=== PATIENT | male | born 1955 | race African-American/Black ===

== ENCOUNTER 2018-02-17 12:49 | Inpatient (IN) | payer MEDICAID ==
[~2018-02-17] VITALS: Ht 167.6 cm; Wt 72.1 kg
[2018-02-17] MEDS ORDERED: KETOROLAC 30MG/ML VIAL IV STA (14:10)
[2018-02-17] MEDS ORDERED: MORPHINE SULFATE 4 MG/ML CPJ (NOT FOR IM USE) IV STA (14:10)
[2018-02-17 14:45] LABS: BASOPHILS % 0.9 % (0.0-2.0); EOSINOPHILS % 1.7 % (0.0-5.0); HEMOGLOBIN. 16.9 g/dL (14.0-18.0); LYMPHOCYTES % 15.9 % (20.0-50.0); MEAN CORPUSCULAR HEMOGLOBIN 34.1 pg (28.0-32.0); MEAN CORPUSCULAR VOLUME 101.3 fL (80.0-94.0); MEAN PLATELET VOLUME 8.2 fl (7.4-10.4); MONOCYTES % 11.1 % (2.0-8.0); NEUTROPHILS % 70.4 % (40.0-76.0); PLATELET 180 x1000/uL (130-400); RED BLOOD CELL COUNT 4.94 mill/uL (4.7-6.1); RED CELL DISTRIBUTION WIDTH 13.5 % (11.6-14.6)
[2018-02-17 14:52] LABS: CHLORIDE 105 mEq/L (98-107)
[2018-02-17] MEDS ORDERED: LABETALOL HCL 20MG/4ML CARPUJECT IV ONE (16:30)
[2018-02-17] MEDS ORDERED: LABETALOL HCL 20MG/4ML CARPUJECT IV SCH (17:00)
[2018-02-17] MEDS ORDERED: HYDRALAZINE 20MG/ML VIAL IV ONE (17:15)
[2018-02-17] MEDS ORDERED: ONDANSETRON HCL 4MG/2ML INJ IV PRN (18:15)
[2018-02-17] MEDS ORDERED: DOCUSATE SODIUM 100MG CAPSULE PO PRN (18:15)
[2018-02-17] MEDS ORDERED: ENOXAPARIN 40MG/0.4ML SYR SUBCUT SCH (18:15)
[2018-02-17] MEDS ORDERED: HYDROMORPHONE HCL/PF 2MG/ML CPJ IV PRN ×2 (18:15→20:45)
[2018-02-17] MEDS ORDERED: DIPHENHYDRAMINE 50MG/ML VIAL IV PRN (18:15)
[2018-02-17] MEDS ORDERED: MAGNESIUM/ALUMINUM HYDROXIDE/SIMETHICONE 30ML UDC PO PRN (18:15)
[2018-02-17] MEDS ORDERED: GUAIFENESIN 200MG/10ML SUGAR FREE UDC PO PRN (18:15)
[2018-02-17] MEDS ORDERED: ACETAMINOPHEN 325MG TABLET PO PRN (18:15)
[2018-02-17] MEDS ORDERED: IPRATROPIUM/ALBUTEROL 0.5-3(2.5)MG/3ML NEB INH PRN (18:15)
[2018-02-17] MEDS ORDERED: LORAZEPAM 2MG/ML CPJ IV PRN (18:15)
[2018-02-18] VITALS (8 sets, daily range): BP systolic 145–179; BP diastolic 86–110
[2018-02-18] MEDS: SODIUM CHLORIDE 0.9% INJ 3ML FLUSH IVF SCH ×4 (00:30→21:38)
[2018-02-18] MEDS ORDERED: HYDROMORPHONE HCL/PF 2MG/ML CPJ IV PRN (03:00)
[2018-02-18] MEDS: HYDRALAZINE 20MG/ML VIAL IV PRN (03:26)
[2018-02-18] MEDS: HYDROCODONE/APAP 7.5/325MG 1 TAB TABLET PO PRN ×3 (03:49→14:42)
[2018-02-18] MEDS: ASPIRIN 81MG EC TABLET PO SCH (08:47)
[2018-02-18] MEDS: CLONIDINE 0.1MG TABLET PO PRN (08:47)
[2018-02-18] MEDS: ENOXAPARIN 40MG/0.4ML SYR SUBCUT SCH ×2 (08:48→08:52)
[2018-02-18 11:13] LABS: BASOPHILS % 0.7 % (0.0-2.0); EOSINOPHILS % 3.2 % (0.0-5.0); HEMATOCRIT. 50.5 % (42.0-52.0); HEMOGLOBIN. 16.9 g/dL (14.0-18.0); LYMPHOCYTES % 17.1 % (20.0-50.0); MEAN CORPUSCULAR HEMOGLOBIN 33.7 pg (28.0-32.0); MEAN CORPUSCULAR VOLUME 100.9 fL (80.0-94.0); MEAN PLATELET VOLUME 8.7 fl (7.4-10.4); MONOCYTES % 12.6 % (2.0-8.0); NEUTROPHILS % 66.4 % (40.0-76.0); PLATELET 192 x1000/uL (130-400); RED CELL DISTRIBUTION WIDTH 13.7 % (11.6-14.6)
[2018-02-18 12:03] LABS: CHLORIDE 105 mEq/L (98-107)
[2018-02-18 12:12] LABS: LDL CHOLESTEROL 31 mg/dL (5-100)
[2018-02-18 12:13] LABS: CREATINE KINASE 256 IU/L (39-308)
[2018-02-18 12:14] LABS: HDL CHOLESTEROL 91 mg/dL (40-59); T4 FREE 0.92 ng/dL (0.76-1.46)
[2018-02-18 12:20] LABS: CREATINE KINASE MB FRACTION 1.9 ng/mL (0.5-3.6)
[2018-02-18 22:11] LABS: T4 FREE 0.97 ng/dL (0.76-1.46)
[2018-02-18 23:05] LABS: CREATINE KINASE 215 IU/L (39-308)
[2018-02-18 23:06] LABS: CREATINE KINASE MB FRACTION 1.4 ng/mL (0.5-3.6)
[2018-02-19] VITALS: BP 148/64
[2018-02-19 04:00] VITALS: BP 174/112
[2018-02-19] MEDS: SODIUM CHLORIDE 0.9% INJ 3ML FLUSH IVF SCH (05:04)
[2018-02-19] MEDS: HYDRALAZINE 20MG/ML VIAL IV PRN (05:13)
[2018-02-19 07:09] VITALS: BP 157/95
[2018-02-19 08:13] VITALS: BP 169/99
[2018-02-19] MEDS: HYDROCODONE/APAP 7.5/325MG 1 TAB TABLET PO PRN (08:16)
[2018-02-19] MEDS: ASPIRIN 81MG EC TABLET PO SCH (08:16)
[2018-02-19] MEDS: CLONIDINE 0.1MG TABLET PO PRN (08:16)
[2018-02-19] MEDS: ENOXAPARIN 40MG/0.4ML SYR SUBCUT SCH (08:17)
[2018-02-19 09:22] LABS: BASOPHILS % 0.7 % (0.0-2.0); EOSINOPHILS % 1.9 % (0.0-5.0); HEMOGLOBIN. 16.9 g/dL (14.0-18.0); LYMPHOCYTES % 10.2 % (20.0-50.0); MEAN CORPUSCULAR HEMOGLOBIN 33.9 pg (28.0-32.0); MEAN CORPUSCULAR VOLUME 100.4 fL (80.0-94.0); MONOCYTES % 12.6 % (2.0-8.0); NEUTROPHILS % 74.6 % (40.0-76.0); RED BLOOD CELL COUNT 4.98 mill/uL (4.7-6.1); RED CELL DISTRIBUTION WIDTH 13.7 % (11.6-14.6)
[2018-02-19 09:47] VITALS: BP 157/95
[2018-02-19 10:25] LABS: PLATELET 192 x1000/uL (130-400)
== END 2018-02-19 11:10 | disposition home or self-care (01) | DRG 199 ==
LOC: ER 12:49 → 8WST 18:24 → ENRESERV 02-18 01:04
PROVIDERS: ADMIT Internal Medicine; ATTEND Internal Medicine
DX: I16.1 Hypertensive emergency (principal); E78.5 Hyperlipidemia, unspecified; F10.10 Alcohol abuse, uncomplicated; R07.89 Other chest pain; I10 Essential (primary) hypertension; F17.200 Nicotine dependence, unspecified, uncomplicated; V18.4XXA Pedal cycle driver injured in noncollision transport accident in traffic accident, initial encounter; Z91.19 Patient's noncompliance with other medical treatment and regimen; Y93.89 Activity, other specified; Y99.8 Other external cause status; Y92.89 Other specified places as the place of occurrence of the external cause; Z71.6 Tobacco abuse counseling
CPT/HCPCS: 36415; 71250; 80061; 82550; 82553; 83036; 83880; 84439; 84443; 84484; 85379; 93005; 93970; 96374; 96375; 99291; J0360; J1650; J1885; J2270; J3490

== ENCOUNTER 2021-07-05 15:14 | Emergency (ER) | payer MEDICAID ==
[~2021-07-05] VITALS: Ht 167.6 cm; Wt 75.0 kg
[2021-07-05] MEDS ORDERED: HYDROCODONE/ACETAMINOPHEN 5/325MG TABLET PO STA (17:42)
[2021-07-05] MEDS ORDERED: CLONIDINE 0.1MG TABLET PO SCH (17:45)
[2021-07-05] MEDS ORDERED: NAPR-681 MT (17:53)
[2021-07-05] MEDS ORDERED: AMLO5TAB88 MT (17:53)
[2021-07-05] MEDS ORDERED: CYCL5TAB MT (17:53)
[2021-07-05] MEDS ORDERED: ACET-2708 MT (17:53)
[2021-07-05 18:59] VITALS: BP 198/108
== END 2021-07-05 19:01 | disposition home or self-care (01) ==
LOC: ER 15:14
DX: M25.551 Pain in right hip (principal); I10 Essential (primary) hypertension; Z79.899 Other long term (current) drug therapy
CPT/HCPCS: 73502; 99283

== ENCOUNTER 2022-08-09 16:35 | Emergency (ER) | payer MEDICAID, OTHER ==
[~2022-08-09] VITALS: Ht 167.6 cm; Wt 65.9 kg
[~2022-08-09 16:35] MED LIST: ACET-2708 MT; AMLO5TAB88 MT; CYCL5TAB MT; NAPR-681 MT
[2022-08-09 17:00] VITALS: O2SAT 91
[2022-08-09 17:38] LABS: BASOPHILS % 1.1 % (0.0-2.0); HEMATOCRIT. 48.7 % (42.0-52.0); LYMPHOCYTES % 15.8 % (20.0-50.0); MEAN CORPUSCULAR VOLUME 103.4 fL (80.0-94.0); MEAN PLATELET VOLUME 7.6 fl (7.4-10.4); MONOCYTES % 11.9 % (2.0-8.0); NEUTROPHILS % 68.2 % (40.0-76.0); PLATELET 300 x1000/uL (130-400); RED BLOOD CELL COUNT 4.71 mill/uL (4.7-6.1); RED CELL DISTRIBUTION WIDTH 14.3 % (11.6-14.6)
[2022-08-09 17:45] LABS: CHLORIDE 104 mEq/L (98-107)
[2022-08-09 17:52] VITALS: BP 184/103; PULSE 94; RESP 18; TEMP 97.9
[2022-08-09] MEDS ORDERED: TAMS-11 MT (19:25)
[2022-08-09] MEDS ORDERED: LEVO250T74 MT (19:25)
[2022-08-09] MEDS ORDERED: AMLO5TAB88 MT (19:25)
[2022-08-09] MEDS ORDERED: CLONIDINE 0.2MG TABLET PO ONE (19:30)
[2022-08-09 19:39] LABS: CLARITY URINE CLEAR (CLEAR); COLOR URINE DARK YELLOW (YELLOW); KETONES URINE TRACE (NEGATIVE); LEUKOCYTE ESTERASE URINE NEGATIVE (NEGATIVE); NITRITE URINE NEGATIVE (NEGATIVE); OCCULT BLOOD URINE 3+ (NEGATIVE); PH URINE 5.5 (4.5-8.0); PROTEIN URINE 2+ (NEGATIVE); SPECIFIC GRAVITY URINE 1.022 (1.005-1.030)
[2022-08-09] MEDS ORDERED: CLONIDINE 0.1MG TABLET PO NR (19:45)
== END 2022-08-09 20:45 | disposition home or self-care (01) ==
LOC: ER 16:35
DX: N34.2 Other urethritis (principal); R06.02 Shortness of breath; I10 Essential (primary) hypertension
CPT/HCPCS: 36415; 71045; 80053; 81003; 84484; 85025; 93005; 99285; A4315

== ENCOUNTER 2022-10-10 13:57 | Emergency (ER) | payer OTHER ==
[~2022-10-10] VITALS: Ht 177.8 cm; Wt 77.0 kg
[~2022-10-10 13:57] MED LIST changes: +LEVO250T74 MT; +TAMS-11 MT
[2022-10-10] MEDS ORDERED: ALBUTEROL (0.083%) 2.5MG/3ML NEB HHN STA (14:29)
[2022-10-10 14:49] LABS: EOSINOPHILS % 3.9 % (0.0-5.0); HEMATOCRIT. 51.4 % (42.0-52.0); HEMOGLOBIN. 16.9 g/dL (14.0-18.0); LYMPHOCYTES % 14.7 % (20.0-50.0); MEAN CORPUSCULAR HEMOGLOBIN 30.7 pg (28.0-32.0); MEAN CORPUSCULAR HGB CONC 32.8 g/dL (31.0-37.0); MEAN CORPUSCULAR VOLUME 93.5 fL (80.0-94.0); MEAN PLATELET VOLUME 7.8 fl (7.4-10.4); MONOCYTES % 13.2 % (2.0-8.0); NEUTROPHILS % 67.2 % (40.0-76.0); PLATELET 259 x1000/uL (130-400)
[2022-10-10 15:02] LABS: CHLORIDE 102 mEq/L (98-107); INDEX HEMOLYSI 1 (1-3); INDEX ICTERIC 1 (1-4); INDEX LIPEMIC 1 (1-3); POTASSIUM 4.5 mEq/L (3.5-5.1); SODIUM 138 mEq/L (136-145)
[2022-10-10 15:14] LABS: ALANINE AMINOTRANSFERASE 17 IU/L (13-61); ASPARTATE AMINOTRANSFERASE 24 IU/L (15-37); BILIRUBIN TOTAL 0.5 mg/dL (0.1-1.0); CALCIUM 9.4 mg/dL (8.5-10.1); CARBON DIOXIDE 28 mEq/L (21-32); CREATININE 1.1 mg/dL (0.6-1.3); GLUCOSE 108 mg/dL (70-105); NT PRO B-TYPE NATRIURETIC PEP 190 pg/mL (5-125); PROTEIN TOTAL 7.3 g/dL (6.0-8.3); TROPONIN I HIGH SENSITIVITY 9 ng/L (<78); UREA NITROGEN BLOOD 14 mg/dL (7-21)
[2022-10-10] MEDS ORDERED: CEFTRIAXONE 1GM PREMIX 50 ML IV ONE (15:15)
[2022-10-10] MEDS ORDERED: AZITHROMYCIN 500MG/250ML 250 ML IV ONE (15:15)
[2022-10-10] MEDS ORDERED: ALBUTEROL (0.083%) 2.5MG/3ML NEB ONE (19:04)
[2022-10-10 19:17] VITALS: PULSE 88; RESP 28; O2SAT 90
[2022-10-10 19:37] VITALS: BP 143/97; PULSE 100; RESP 31; TEMP 98.3
== END 2022-10-10 20:00 | disposition short-term general hospital (02) ==
LOC: ER 13:57
DX: I11.0 Hypertensive heart disease with heart failure (principal); I50.9 Heart failure, unspecified; J44.9 Chronic obstructive pulmonary disease, unspecified; Z79.899 Other long term (current) drug therapy; Z20.822 Contact with and (suspected) exposure to COVID-19
CPT/HCPCS: 80053; 83880; 85025; 85379; 84484; 36415; 71045; 71275; 94640; 93005; 96368; 96365; 96366; 99285; 87426; J0456; J0696; Z7610 ×3; C9803

== ENCOUNTER 2022-11-06 23:27 | Inpatient (IN) | payer OTHER ==
[~2022-11-06] VITALS: Ht 165.1 cm; Wt 62.3 kg
[2022-11-06] MEDS ORDERED: ALBUTEROL (0.083%) 2.5MG/3ML NEB HHN STA (23:38)
[2022-11-06] MEDS ORDERED: IPRATROPIUM BROMIDE (0.02%) 0.5MG/2.5ML NEB HHN STA (23:38)
[2022-11-06] MEDS ORDERED: SODIUM CHLORIDE 0.9% 250 ML IV ONE (23:45)
[2022-11-06] MEDS ORDERED: SODIUM CHLORIDE 0.9% 1,000 ML IV ONE (23:45)
[2022-11-07] VITALS (8 sets, daily range): BP systolic 112–156; BP diastolic 61–100; PULSE 22–124; RESP 20–24; TEMP 96.9–98.2; O2SAT 93–99
[2022-11-07 00:36] LABS: HEMATOCRIT. 44.6 % (42.0-52.0); HEMOGLOBIN. 14.5 g/dL (14.0-18.0); MEAN CORPUSCULAR HEMOGLOBIN 29.6 pg (28.0-32.0); MEAN CORPUSCULAR HGB CONC 32.5 g/dL (31.0-37.0); MEAN PLATELET VOLUME 7.6 fl (7.4-10.4); PLATELET 184 x1000/uL (130-400); RED BLOOD CELL COUNT 4.89 mill/uL (4.7-6.1); RED CELL DISTRIBUTION WIDTH 15.3 % (11.6-14.6); WHITE BLOOD COUNT 9.8 x1000/uL (4.5-11.0)
[2022-11-07 00:40] LABS: CHLORIDE 98 mEq/L (98-107); INDEX HEMOLYSI 1 (1-3); INDEX ICTERIC 1 (1-4); INDEX LIPEMIC 1 (1-3); POTASSIUM 4.7 mEq/L (3.5-5.1); SODIUM 136 mEq/L (136-145)
[2022-11-07 00:44] LABS: DIFFERENTIAL COMMENT 1
[2022-11-07 00:50] LABS: ALANINE AMINOTRANSFERASE 19 IU/L (13-61); ASPARTATE AMINOTRANSFERASE 22 IU/L (15-37); BILIRUBIN TOTAL 0.7 mg/dL (0.1-1.0); CALCIUM 9.5 mg/dL (8.5-10.1); CARBON DIOXIDE 32 mEq/L (21-32); CREATININE 1.1 mg/dL (0.6-1.3); ETHANOL BLOOD < 10 mg/dL (<10); GLUCOSE 103 mg/dL (70-105); NT PRO B-TYPE NATRIURETIC PEP 54 pg/mL (5-125); PROTEIN TOTAL 6.9 g/dL (6.0-8.3); TROPONIN I HIGH SENSITIVITY 12 ng/L (<78); UREA NITROGEN BLOOD 25 mg/dL (7-21)
[2022-11-07 01:04] LABS: CLARITY URINE CLEAR (CLEAR); COLOR URINE YELLOW (YELLOW); GLUCOSE URINE NEGATIVE (NEGATIVE); KETONES URINE 1+ (NEGATIVE); LEUKOCYTE ESTERASE URINE NEGATIVE (NEGATIVE); NITRITE URINE NEGATIVE (NEGATIVE); OCCULT BLOOD URINE NEGATIVE (NEGATIVE); PH URINE 6.5 (4.5-8.0); PROTEIN URINE TRACE (NEGATIVE); SPECIFIC GRAVITY URINE 1.016 (1.005-1.030)
[2022-11-07 01:08] LABS: BACTERIA URINE NONE SEEN; RBC URINE 0-2 /hpf (0-2); SQUAMOUS EPITHELIAL CELL URINE NONE SEEN /lpf (RARE/1+); WBC URINE 0-2 /hpf (0-2); YEAST URINE NONE SEEN
[2022-11-07 01:18] LABS: PLATELET ESTIMATE NORMAL
[2022-11-07 01:27] LABS: *AMPHETAMINES SCREEN URINE NEGATIVE (NEGATIVE); *BARBITURATES SCREEN URINE NEGATIVE (NEGATIVE); *BENZODIAZEPINES SCREEN URINE NEGATIVE (NEGATIVE); *COCAINE SCREEN URINE NEGATIVE (NEGATIVE); CANNABINOID URINE SCREEN NEGATIVE (NEGATIVE); ECSTASY MDMA SCREEN URINE NEGATIVE (NEGATIVE); OPIATES URINE SCREEN PRESUMTIVE POSITIVE (NEGATIVE); PHENCYCLIDINE URINE SCREEN NEGATIVE (NEGATIVE)
[2022-11-07] MEDS ORDERED: AZITHROMYCIN 500MG/250ML 250 ML IV NR (01:30)
[2022-11-07] MEDS ORDERED: CEFTRIAXONE 1GM PREMIX 50 ML IV NR (01:30)
[2022-11-07] MEDS ORDERED: SODIUM CHLORIDE 0.9% 1,000 ML IV NR (01:30)
[2022-11-07 01:31] LABS: PROTHROMBIN TIME 10.7 sec (9.6-11.0)
[2022-11-07] MEDS ORDERED: METHYLPREDNISOLONE SOD SUCC 40MG VIAL IV SCH (11:00)
[2022-11-07] MEDS ORDERED: IPRATROPIUM BROMIDE (0.02%) 0.5MG/2.5ML NEB HHN PRN (11:00)
[2022-11-07 11:11] LABS: BG BASE EXCESS 5.5 mmol/L (-2.0-2.0); BG CARBOXYHEMOGLOBIN 0.7 % (0.5-1.5); BG HCO3 ACT 32.2 mmol/L (22.0-26.0); BG METHEMOGLOBIN 0.1 % (0.0-1.5); BG OXYGEN SATURATION 91.9 % (92.0-98.5); BG OXYHEMOGLOBIN 91.2 % (94.0-97.0); BG PCO2 54.9 mmHg (35.0-45.0); BG PH 7.386 (7.350-7.450); BG PO2 65.1 mmHg (75.0-100.0); BG SAMPLE SITE RIGHT BRACHIAL; BG TOTAL HEMOGLOBIN 14.8 g/dL (12.0-18.0); BG VENT MODE NASAL CANNULA
[2022-11-07] MEDS: BUDESONIDE 0.5MG/2ML NEB HHN SCH ×2 (13:28→20:55)
[2022-11-07] MEDS: IPRATROPIUM BROMIDE (0.02%) 0.5MG/2.5ML NEB HHN SCH ×3 (13:28→20:55)
[2022-11-07] MEDS: FUROSEMIDE 40MG/4ML VIAL IVP SCH (19:54)
[2022-11-07] MEDS: ENOXAPARIN 40MG/0.4ML SYR SUBCUT SCH (19:55)
[2022-11-07] MEDS: METHYLPREDNISOLONE SOD SUCC 40MG/ML (ACT-O-VIAL) IV SCH (22:44)
[2022-11-08] VITALS (11 sets, daily range): BP systolic 147–159; BP diastolic 95–109; PULSE 88–115; RESP 18–22; TEMP 97.3–98
[2022-11-08] MEDS: IPRATROPIUM BROMIDE (0.02%) 0.5MG/2.5ML NEB HHN SCH ×5 (00:50→17:21)
[2022-11-08] MEDS: METHYLPREDNISOLONE SOD SUCC 40MG/ML (ACT-O-VIAL) IV SCH ×3 (06:29→21:50)
[2022-11-08 08:31] LABS: BG BASE EXCESS 5.9 mmol/L (-2.0-2.0); BG CARBOXYHEMOGLOBIN 1.1 % (0.5-1.5); BG DEOXYHEMOGLOBIN 9.5 % (0.0-5.0); BG FRACTION INSPIRED OXYGEN 44; BG HCO3 ACT 32.5 mmol/L (22.0-26.0); BG METHEMOGLOBIN 0.3 % (0.0-1.5); BG OXYGEN SATURATION 90.4 % (92.0-98.5); BG OXYHEMOGLOBIN 89.1 % (94.0-97.0); BG PCO2 54.5 mmHg (35.0-45.0); BG PH 7.394 (7.350-7.450); BG PO2 59.2 mmHg (75.0-100.0); BG SAMPLE SITE RIGHT RADIAL; BG TOTAL HEMOGLOBIN 15.3 g/dL (12.0-18.0); BG VENT MODE NASAL CANNULA
[2022-11-08] MEDS: FUROSEMIDE 40MG/4ML VIAL IVP SCH ×2 (08:45→11:33)
[2022-11-08] MEDS: BUDESONIDE 0.5MG/2ML NEB HHN SCH (09:12)
[2022-11-08] MEDS: ENOXAPARIN 40MG/0.4ML SYR SUBCUT SCH (18:17)
[2022-11-09] VITALS (11 sets, daily range): BP systolic 125–158; BP diastolic 72–104; PULSE 88–122; RESP 18–23; TEMP 96.8–98.2; O2SAT 88–97
[2022-11-09] MEDS: IPRATROPIUM BROMIDE (0.02%) 0.5MG/2.5ML NEB HHN SCH ×5 (03:18→23:33)
[2022-11-09] MEDS: METHYLPREDNISOLONE SOD SUCC 40MG/ML (ACT-O-VIAL) IV SCH ×3 (05:52→21:01)
[2022-11-09] MEDS: FUROSEMIDE 40MG/4ML VIAL IVP SCH ×2 (09:42→18:50)
[2022-11-09] MEDS ORDERED: IPRATROPIUM BROMIDE (0.02%) 0.5MG/2.5ML NEB HHN PRN (12:30)
[2022-11-09] MEDS: ENOXAPARIN 40MG/0.4ML SYR SUBCUT SCH (13:20)
[2022-11-09] MEDS: BUDESONIDE 0.5MG/2ML NEB HHN SCH (23:31)
[2022-11-10] VITALS (9 sets, daily range): BP systolic 136–153; BP diastolic 72–94; PULSE 86–119; RESP 18–20; TEMP 96.6–98.8; O2SAT 90–97
[2022-11-10] MEDS: IPRATROPIUM BROMIDE (0.02%) 0.5MG/2.5ML NEB HHN SCH ×4 (03:38→16:08)
[2022-11-10] MEDS: METHYLPREDNISOLONE SOD SUCC 40MG/ML (ACT-O-VIAL) IV SCH ×2 (05:56→14:59)
[2022-11-10] MEDS: FUROSEMIDE 40MG/4ML VIAL IVP SCH (05:56)
[2022-11-10] MEDS: BUDESONIDE 0.5MG/2ML NEB HHN SCH (07:52)
[2022-11-10] MEDS: ENOXAPARIN 40MG/0.4ML SYR SUBCUT SCH (09:02)
== END 2022-11-10 16:22 | disposition short-term general hospital (02) | DRG 140 ==
LOC: ER 23:27 → MICUSO 11-07 02:19 → EDBEDREQ 11-07 02:44 → EDBEDREQTM 11-07 02:44 → 8WST 11-07 08:58
PROVIDERS: ADMIT Internal Medicine; ATTEND Internal Medicine
PROC: 5A09357 Assistance with Respiratory Ventilation, Less than 24 Consecutive Hours, Continuous Positive Airway Pressure (ICD-10-PCS; principal; 2022-11-08)
DX: J44.1 Chronic obstructive pulmonary disease with (acute) exacerbation (principal); J96.01 Acute respiratory failure with hypoxia; J96.02 Acute respiratory failure with hypercapnia; I11.0 Hypertensive heart disease with heart failure; J18.9 Pneumonia, unspecified organism; E87.29 Other acidosis; I50.9 Heart failure, unspecified; J44.0 Chronic obstructive pulmonary disease with (acute) lower respiratory infection; F19.10 Other psychoactive substance abuse, uncomplicated; Z20.822 Contact with and (suspected) exposure to COVID-19; F17.210 Nicotine dependence, cigarettes, uncomplicated; Z87.01 Personal history of pneumonia (recurrent)
CPT/HCPCS: 36415; 36600; 71045; 80053; 80305; 80320; 81003; 82375; 82805; 83605; 83880; 84145; 84484; 85025; 87426; 93005; 93970; 94640; 94660; 99291; C9803; J0456; J0696; J1650; J1940; J2920; J7030; J7050; J7626; G0480

== ENCOUNTER 2023-05-08 05:35 | Emergency (ER) | payer MEDICARE, OTHER ==
[~2023-05-08] VITALS: Ht 170.2 cm; Wt 61.0 kg
[~2023-05-08 05:35] MED LIST changes: -ACET-2708 MT; +ALBU2.5V13 IH; +ALBU6.7H15 IH; -AMLO5TAB88 MT; +AMLO5TAB88 PO; +APIX5TAB PO; +BICA50TA48 PO; -CYCL5TAB MT; +D-ME473S50 PO; +FAMO20TA8 PO; +FURO80TA3 MT; -LEVO250T74 MT; +MED4 MT; +MELA3TAB40 PO; -NAPR-681 MT; +SPIR25TA PO; -TAMS-11 MT; +TAMS-11 PO
[2023-05-08 07:21] LABS: ALANINE AMINOTRANSFERASE 9 IU/L (10-49); ALBUMIN 4.5 g/dL (3.2-4.8); ASPARTATE AMINOTRANSFERASE 22 IU/L (<34); BILIRUBIN TOTAL 0.5 mg/dL (0.1-1.0); CALCIUM 9.3 mg/dL (8.7-10.4); CARBON DIOXIDE 34 mEq/L (21-32); CHLORIDE 96 mEq/L (98-107); CREATININE 1.2 mg/dL (0.6-1.3); GLUCOSE 146 mg/dL (70-105); POTASSIUM 4.6 mEq/L (3.5-5.1); PROTEIN TOTAL 6.9 g/dL (6.0-8.3); SODIUM 135 mEq/L (136-145); UREA NITROGEN BLOOD 24 mg/dL (9-23)
[2023-05-08 07:23] LABS: TROPONIN I HIGH SENSITIVITY < 4 ng/L (3.0-53)
[2023-05-08 07:27] LABS: PROTHROMBIN TIME 11.2 sec (9.6-11.0)
[2023-05-08 08:26] LABS: BASOPHILS % 0.8 % (0.0-2.0); EOSINOPHILS % 1.4 % (0.0-5.0); HEMATOCRIT. 35.7 % (42.0-52.0); HEMOGLOBIN. 11.2 g/dL (14.0-18.0); LYMPHOCYTES % 11.7 % (20.0-50.0); MEAN CORPUSCULAR HEMOGLOBIN 27.8 pg (28.0-32.0); MEAN CORPUSCULAR HGB CONC 31.4 g/dL (31.0-37.0); MEAN CORPUSCULAR VOLUME 88.5 fL (80.0-94.0); MEAN PLATELET VOLUME 8.3 fl (7.4-10.4); MONOCYTES % 12.4 % (2.0-8.0); NEUTROPHILS % 73.7 % (40.0-76.0); PLATELET 288 x1000/uL (130-400); RED BLOOD CELL COUNT 4.04 mill/uL (4.7-6.1); RED CELL DISTRIBUTION WIDTH 14.3 % (11.6-14.6); WHITE BLOOD COUNT 12.8 x1000/uL (4.5-11.0)
[2023-05-08] MEDS: PREDNISONE 20MG TABLET PO STA (08:56)
[2023-05-08 09:38] LABS: TROPONIN I HIGH SENSITIVITY < 4 ng/L (3.0-53)
[2023-05-08] MEDS: KETOROLAC 30MG/ML VIAL IV NR (09:39)
[2023-05-08] MEDS: KETOROLAC 30MG/ML VIAL IV STA (09:54)
[2023-05-08 10:30] VITALS: PULSE 104; RESP 22; O2SAT 94
[2023-05-08] MEDS ORDERED: ALBUTEROL (0.083%) 2.5MG/3ML NEB HHN NR (10:30)
[2023-05-08] MEDS ORDERED: IPRATROPIUM BROMIDE (0.02%) 0.5MG/2.5ML NEB HHN NR (10:30)
[2023-05-08] MEDS: ALBUTEROL (0.083%) 2.5MG/3ML NEB HHN STA (10:30)
[2023-05-08] MEDS: IPRATROPIUM BROMIDE (0.02%) 0.5MG/2.5ML NEB HHN STA (10:30)
[2023-05-08] MEDS: PIPERACILLIN/TAZO 3.375G/50ML 50 ML IV STA (12:07)
[2023-05-08] MEDS: VANCOMYCIN 1G PREMIX 200 ML IV STA (12:14)
[2023-05-08] MEDS: ACETAMINOPHEN 325MG TABLET PO NR (15:05)
[2023-05-08 16:06] VITALS: BP 152/66; PULSE 87; RESP 20; TEMP 98.1
== END 2023-05-08 16:31 | disposition short-term general hospital (02) ==
LOC: ER 05:35 → CANBEDREQ 12:32 → ER 16:31
DX: J18.9 Pneumonia, unspecified organism (principal); J45.901 Unspecified asthma with (acute) exacerbation; I10 Essential (primary) hypertension; Z98.890 Other specified postprocedural states
CPT/HCPCS: 99285; 74176; 96365; 71045; 96366; 96375; 80053; 83880; 83690; 85025; 85610; 84484; 36415; 94640; 93005; 96368; J7512; J1885; J2543; J3370